=== PATIENT | male | born 1940 | race Caucasian/White ===

== ENCOUNTER → 2020-01-03 | Outpatient (CLI) | payer OTHER ==
[~2020-01-03] MED LIST: ASPI325 PO; ASPI81CH PO; ATEN25 PO; CLOP75 PO; HYDCHL25 PO; LISI20 PO; LIVALO2 MG PO; MULVITMIND PO; NIAC500 PO; NITR.6SL SL; PANT20 PO; TAMS.4ER PO
[2020-01-03 18:52] LABS: BASOPHILS ABSOLUTE AUTO 0.03 K/mm3 (0.00-0.23); BASOPHILS PERCENT AUTO 1 % (0-2); EOSINOPHILS ABSOLUTE AUTO 0.06 K/mm3 (0.00-0.68); EOSINOPHILS PERCENT AUTO 1 % (0-6); Hematocrit 34.6 % (37.0-53.0); Hemoglobin 11.9 g/dL (13.5-17.5); IMMATURE GRAN ABSOLUTE AUTO 0.03 K/mm3 (0.00-0.10); IMMATURE GRAN PERCENT AUTO 1 % (0-1); LYMPHOCYTES ABSOLUTE AUTO 1.82 K/mm3 (0.84-5.20); LYMPHOCYTES PERCENT AUTO 28 % (21-46); MONOCYTES PERCENT AUTO 8 % (4-13); Mean Corpuscular HGB 30.4 pg (26.0-34.0); Mean Corpuscular HGB Conc 34.4 g/dL (31.5-36.5); Mean Corpuscular Volume 88 fL (80-100); Mean Platelet Volume 9.7 fL (9.1-12.4); NEUTROPHILS ABSOLUTE AUTO 4.04 K/mm3 (1.96-9.15); NEUTROPHILS PERCENT AUTO 62 % (41-73); Platelet Count 199 K/mm3 (150-400); RDW Coefficient Variation 12.6 % (11.7-14.2); RDW Standard Deviation 40.1 fL (35.1-46.3); Red Blood Cell Count 3.92 M/mm3 (4.30-5.90); White Blood Cell Count 6.48 K/mm3 (4.00-11.30)
[2020-01-03 19:03] LABS: Albumin, Blood 4.3 g/dL (3.4-5.0); Albumin/Globulin Ratio 1.3 (0.8-1.8); Bilirubin, Total 0.2 mg/dL (0.1-1.0); Calcium, Blood 8.7 mg/dL (8.5-10.1); Creatinine, Blood 1.68 mg/dL (0.60-1.20); Globulin, Blood 3.3 g/dL (2.2-4.0); Potassium, Blood 4.7 mmol/L (3.5-5.5); Total Protein, Blood 7.6 g/dL (6.4-8.2)
== END | disposition home or self-care (01) ==
LOC: LAB SHORT 18:48 → LAB EV 18:48
PROVIDERS: Physician Assistant
DX: R10.31 Right lower quadrant pain (principal)
CPT/HCPCS: 80053; 85025

== ENCOUNTER 2020-06-18 12:14 | Day surgery (SDC) | payer OTHER ==
[~2020-06-18] VITALS: Ht 182.9 cm; Wt 89.2 kg
[~2020-06-18 12:14] MED LIST changes: +Aspirin EC81 MG PO; +B-121000 MC4 PO; +FERSU300 PO; +MAGNESIUM OXID500 MG PO; +MULTIPLE VITAM1 EACH PO; +NITR.4SL SL; +ROSU10TA PO
== END 2020-06-18 14:35 | disposition home or self-care (01) ==
LOC: ORSCSDS 12:14
PROVIDERS: Student in an Organized Health Care Education/Training Program
PROC: 0DBP8ZX Excision of Rectum, Via Natural or Artificial Opening Endoscopic, Diagnostic (ICD-10-PCS; principal; 2020-06-18 13:30)
PROC: 0DB58ZX Excision of Esophagus, Via Natural or Artificial Opening Endoscopic, Diagnostic (ICD-10-PCS; principal; 2020-06-18 13:30)
PROC: 0DB98ZX Excision of Duodenum, Via Natural or Artificial Opening Endoscopic, Diagnostic (ICD-10-PCS; principal; 2020-06-18 13:30)
PROC: 0DB78ZX Excision of Stomach, Pylorus, Via Natural or Artificial Opening Endoscopic, Diagnostic (ICD-10-PCS; principal; 2020-06-18 13:30)
PROC: 0DBK8ZX Excision of Ascending Colon, Via Natural or Artificial Opening Endoscopic, Diagnostic (ICD-10-PCS; principal; 2020-06-18 13:30)
PROC: 0DBH8ZX Excision of Cecum, Via Natural or Artificial Opening Endoscopic, Diagnostic (ICD-10-PCS; principal; 2020-06-18 13:30)
DX: K21.0 Gastro-esophageal reflux disease with esophagitis (principal); R10.9 Unspecified abdominal pain; Z12.11 Encounter for screening for malignant neoplasm of colon; D12.2 Benign neoplasm of ascending colon; D12.0 Benign neoplasm of cecum; K29.70 Gastritis, unspecified, without bleeding; Z87.11 Personal history of peptic ulcer disease; K57.30 Diverticulosis of large intestine without perforation or abscess without bleeding; K64.8 Other hemorrhoids; I10 Essential (primary) hypertension; N18.3 Chronic kidney disease, stage 3 (moderate); I25.10 Atherosclerotic heart disease of native coronary artery without angina pectoris; E78.5 Hyperlipidemia, unspecified; E11.9 Type 2 diabetes mellitus without complications; Z79.899 Other long term (current) drug therapy; Z79.01 Long term (current) use of anticoagulants; Z79.82 Long term (current) use of aspirin
CPT/HCPCS: 82947; 88305; 88312; 88342; 93005; 93010; J2704; J7120

== ENCOUNTER → 2020-07-25 | Outpatient (CLI) | payer OTHER | END | disposition home or self-care (01) | LOC: LAB 10:28 → LAB SHORT 10:28 | DX: D04.39 Carcinoma in situ of skin of other parts of face (principal) | CPT/HCPCS: 88305 ==

== ENCOUNTER → 2021-05-23 | Outpatient (CLI) | payer OTHER ==
[2021-05-23 12:52] LABS: Adenovirus F 40/41 Not Detected (NOT DETECT); Astrovirus Not Detected (NOT DETECT); Campylobacter Sp Not Detected (NOT DETECT); Cryptosporidium Not Detected (NOT DETECT); Cyclospora Cayetanensis Not Detected (NOT DETECT); E. Coli O157 Not Detected (NOT DETECT); Entamoeba Histolytica Not Detected (NOT DETECT); Enteroaggregative E. coli-EAEC Not Detected (NOT DETECT); Enteropathogenic E. coli-EPEC Not Detected (NOT DETECT); Enterotoxigenic E. coli-ETEC Not Detected (NOT DETECT); Giardia Lamblia Not Detected (NOT DETECT); Norovirus GI/GII Not Detected (NOT DETECT); Plesiomonas Shigelloides Not Detected (NOT DETECT); Rotavirus A Not Detected (NOT DETECT); Salmonella Sp Not Detected (NOT DETECT); Sapovirus Not Detected (NOT DETECT); Shiga Toxin-prod E. coli-STEC Not Detected (NOT DETECT); Shigella/Enteroin E. coli-EIEC Not Detected (NOT DETECT); Vibrio Cholerae Not Detected (NOT DETECT); Vibrio Sp Not Detected (NOT DETECT); Yersinia Enterocolitica Not Detected (NOT DETECT)
== END | disposition home or self-care (01) ==
LOC: LAB 05:55 → LAB SHORT 05:55
PROVIDERS: Student in an Organized Health Care Education/Training Program
DX: R19.7 Diarrhea, unspecified (principal)
CPT/HCPCS: 0097U; 87324

== ENCOUNTER → 2021-11-25 | Outpatient (CLI) | payer OTHER ==
[2021-11-25 13:13] LABS: Adenovirus F 40/41 Not Detected (NOT DETECT); Astrovirus Not Detected (NOT DETECT); Campylobacter Sp Not Detected (NOT DETECT); Cryptosporidium Not Detected (NOT DETECT); Cyclospora Cayetanensis Not Detected (NOT DETECT); E. Coli O157 Not Detected (NOT DETECT); Entamoeba Histolytica Not Detected (NOT DETECT); Enteroaggregative E. coli-EAEC Not Detected (NOT DETECT); Enteropathogenic E. coli-EPEC Not Detected (NOT DETECT); Enterotoxigenic E. coli-ETEC Not Detected (NOT DETECT); Giardia Lamblia Not Detected (NOT DETECT); Norovirus GI/GII Not Detected (NOT DETECT); Plesiomonas Shigelloides Not Detected (NOT DETECT); Salmonella Sp Not Detected (NOT DETECT); Shiga Toxin-prod E. coli-STEC Not Detected (NOT DETECT); Shigella/Enteroin E. coli-EIEC Not Detected (NOT DETECT); Vibrio Cholerae Not Detected (NOT DETECT); Vibrio Sp Not Detected (NOT DETECT); Yersinia Enterocolitica Not Detected (NOT DETECT)
[2021-11-25 13:14] LABS: Rotavirus A Not Detected (NOT DETECT); Sapovirus Not Detected (NOT DETECT)
== END | disposition home or self-care (01) ==
LOC: LAB SHORT 06:45 → LAB 06:45
PROVIDERS: Student in an Organized Health Care Education/Training Program
DX: K58.2 Mixed irritable bowel syndrome (principal); R19.7 Diarrhea, unspecified
CPT/HCPCS: 0097U

== ENCOUNTER 2022-01-12 00:16 | Inpatient (IN) | payer OTHER ==
[~2022-01-12] VITALS: Ht 185.4 cm; Wt 91.7 kg
[2022-01-12] MEDS ORDERED: PANT40 PO (00:43)
[2022-01-12] MEDS ORDERED: PRAV20 PO (00:43)
[2022-01-12 00:50] LABS: BASOPHILS ABSOLUTE AUTO 0.03 K/mm3 (0.00-0.23); BASOPHILS PERCENT AUTO 1 % (0-2); EOSINOPHILS ABSOLUTE AUTO 0.07 K/mm3 (0.00-0.68); EOSINOPHILS PERCENT AUTO 1 % (0-6); Hematocrit 34.7 % (37.0-53.0); Hemoglobin 11.5 g/dL (13.5-17.5); IMMATURE GRAN ABSOLUTE AUTO 0.03 K/mm3 (0.00-0.10); IMMATURE GRAN PERCENT AUTO 1 % (0-1); LYMPHOCYTES ABSOLUTE AUTO 1.51 K/mm3 (0.84-5.20); LYMPHOCYTES PERCENT AUTO 28 % (21-46); MONOCYTES ABSOLUTE AUTO 0.45 K/mm3 (0.16-1.47); MONOCYTES PERCENT AUTO 8 % (4-13); Mean Corpuscular HGB 29.6 pg (26.0-34.0); Mean Corpuscular HGB Conc 33.1 g/dL (31.5-36.5); Mean Corpuscular Volume 89 fL (80-100); Mean Platelet Volume 9.8 fL (9.1-12.4); NEUTROPHILS ABSOLUTE AUTO 3.39 K/mm3 (1.96-9.15); NEUTROPHILS PERCENT AUTO 62 % (41-73); Platelet Count 232 K/mm3 (150-400); RDW Coefficient Variation 12.2 % (11.7-14.2); RDW Standard Deviation 39.7 fL (35.1-46.3); Red Blood Cell Count 3.88 M/mm3 (4.30-5.90); White Blood Cell Count 5.48 K/mm3 (4.00-11.30)
[2022-01-12 01:01] LABS: Albumin, Blood 3.6 g/dL (3.4-5.0); Bilirubin, Total 0.2 mg/dL (0.1-1.0); Bun/Creatinine Ratio 20.2 (12.0-20.0); Calcium, Blood 9.4 mg/dL (8.5-10.1); Creatinine, Blood 1.29 mg/dL (0.60-1.20); Globulin, Blood 3.6 g/dL (2.2-4.0); Potassium, Blood 4.7 mmol/L (3.5-5.5); Total Protein, Blood 7.2 g/dL (6.4-8.2)
[2022-01-12 03:37] LABS: Anti-Xa UFH, PHA Monitoring <0.10 IU/mL; Prothrombin Time Results 10.5 Sec (9.7-11.5)
[2022-01-12 04:27] LABS: BASOPHILS ABSOLUTE AUTO 0.03 K/mm3 (0.00-0.23); BASOPHILS PERCENT AUTO 0 % (0-2); EOSINOPHILS ABSOLUTE AUTO 0.06 K/mm3 (0.00-0.68); EOSINOPHILS PERCENT AUTO 1 % (0-6); Hematocrit 35.9 % (37.0-53.0); IMMATURE GRAN ABSOLUTE AUTO 0.04 K/mm3 (0.00-0.10); IMMATURE GRAN PERCENT AUTO 1 % (0-1); LYMPHOCYTES ABSOLUTE AUTO 1.89 K/mm3 (0.84-5.20); LYMPHOCYTES PERCENT AUTO 25 % (21-46); MONOCYTES ABSOLUTE AUTO 0.52 K/mm3 (0.16-1.47); MONOCYTES PERCENT AUTO 7 % (4-13); Mean Corpuscular HGB 29.8 pg (26.0-34.0); Mean Corpuscular HGB Conc 33.4 g/dL (31.5-36.5); Mean Corpuscular Volume 89 fL (80-100); Mean Platelet Volume 9.9 fL (9.1-12.4); NEUTROPHILS PERCENT AUTO 66 % (41-73); Platelet Count 246 K/mm3 (150-400); RDW Standard Deviation 38.9 fL (35.1-46.3); Red Blood Cell Count 4.03 M/mm3 (4.30-5.90); White Blood Cell Count 7.54 K/mm3 (4.00-11.30)
[2022-01-12 04:41] LABS: Albumin, Blood 3.7 g/dL (3.4-5.0); Bilirubin, Total 0.3 mg/dL (0.1-1.0); Bun/Creatinine Ratio 21.2 (12.0-20.0); Calcium, Blood 9.6 mg/dL (8.5-10.1); Creatinine, Blood 1.18 mg/dL (0.60-1.20); Globulin, Blood 3.6 g/dL (2.2-4.0); Potassium, Blood 4.7 mmol/L (3.5-5.5); Total Protein, Blood 7.3 g/dL (6.4-8.2)
--- NOTE | 2022-01-12 05:21 | NUR ---
CARE ASSUMPTION: PATIENT ARRIVED TO UNIT VIA [facility] FROM ED AT 0321. RECEIVED REPORT FROM ALY MUNGUIA. PATIENT HAD SEVERE CHEST PAIN AT HOME AND WAS LAYING ON THE FLOOR WHEN EMS ARRIVED. HE STATED TO EMS THAT HE WAS TOLD TO LAY FLAT ON THE FLOOR WHEN HE HAS CHEST PAIN AND RATED HIS PAIN 8/10 AT THAT TIME. HIS PAIN WAS 2/10 UPON ARRIVAL TO ED AND 0/10 UPON ARRIVAL TO PCU. HE WAS GIVEN ASPIRIN AND 1 SUBLINGUAL NITRO PRIOR TO COMING TO PCU. HE AMBULATED FROM [facility] TO BED AND ADMISSION COMPLETED. SECOND IV WAS STARTED IN ANTICIPATION OF HEPARIN ORDER AND NS WAS RUNNING AT 75 MLS/HR. MEDICATED PER EMAR AND PATIENT CURRENTLY NPO. HEART CENTER CONSULT ORDERED.
--- NOTE | 2022-01-12 05:26 | NUR ---
SHIFT SUMMARY: PATIENT RESTING IN BED, DENIES CHEST PAIN OR SOB. USES CALL LIGHT APPROPRIATELY AND STANDS AT BEDSIDE TO USE URINAL. BPS SLIGHTLY ELEVATED - PATIENT HAS HX OF HTN. PATIENT UNDERSTANDS HE IS NPO UNTIL AFTER VEGETABLE THINNER PROCEDURE AND STATES HE "WILL BE FINE." PLEASANT GENTLEMAN AND COOPERATIVE WITH CARE. BED IN LOW POSITION WITH CALL LIGHT IN REACH. WILL CONTINUE TO MONITOR AND REPORT TO ONCOMING RN.
--- NOTE | 2022-01-12 07:51 | NUR ---
AM NOTE: PATIENT ALERT AND ORIENTED X4. PERRLA. NUMBNESS/TINGLING TO LOWER LEGS, PATIENT STATES THAT IS HIM "GETTING OLD". ABLE TO STAND AND USE URINAL UNASSISTED. ON ROOM AIR, LUNGS SOUNDING CLEAR. DENIES COUGH. TELE SHOWING SINUS LAUREN - SINUS RHYTHM WITH ST DEPRESSION. BP STABLE. DENIES CHEST PAIN/PRESSURE. HEPARIN DRIP INFUSING. DENIES ABDOMINAL PAIN/NAUSEA. NPO AT THIS TIME. PLAN FOR CARDIOLOGY CONSULT THIS AM. SKIN C/D/I. USING CALL LIGHT WHEN NEEDED. ABLE TO TURN SELF IND IN BED. NORMAL SALINE INFUSING AT 75 ML/HR X1 BAG. DENIES NEEDS AT THIS TIME. WILL CONTINUE TO MONITOR.
[2022-01-12] MEDS ORDERED: LISI20 PO (08:47)
--- NOTE | 2022-01-12 09:05 | NUR ---
DR BACA IN TO SEE PATIENT. PLAN FOR CARDIAC STRESS TEST. DR. BROWN IN TO SEE PATIENT WELL. DISCUSSED MED REC. PARAMETERS PLACED ON ATENOLOL. PATIENT DRINKING WATER AT THIS TIME. AM MEDS GIVEN. WILL CONTINUE TO MONITOR.
--- NOTE | 2022-01-12 09:12 | NUR ---
SPOKE WITH NUCULEAR MEDICINE REGARDING STRESS TEST. UNABLE TO DO 1 DAY PROTOCOL. PLAN FOR TODAY - INJECT MEDICATION AT 1230 AND THEN TAKE PICTURES AROUND 1330. NPO AT THIS TIME, PATIENT ABLE TO EAT LUNCH AFTER 1230 AND DINNER TONIGHT. PLAN FOR NPO AT MIDNIGHT, WATER OKAY, NO CAFFEINE. 2ND PART OF STRESS TEST 01/13 AM. PATIENT AND UPDATED.
--- NOTE | 2022-01-12 17:38 | NUR ---
SHIFT SUMMARY: NO ACUTE CHANGES. SEE AM NOTE FOR UPDATES. PATIENT REMAINS ALERT AND ORIENTED X4. NO CHANGES TO NEURO. REMAINS ON ROOM AIR. TELE SHOWS SINUS LAUREN - SINUS RHYTHM WITH HR 50-70'S. CONTINUES TO DENY CHEST PAIN. 2 DAY PROTOCOL STRESS TEST IN PROGRESS. DAY ONE COMPLETE. NPO AT MIDNIGHT, WATER OKAY, NO CAFFEINE. HEPARIN INFUSING. NS COMPLETE. TOLERATING PO DIET. CALL LIGHT IN REACH. USING URINAL AT BEDSIDE. DENIES NEEDS AT THIS TIME. WILL CONTINUE TO MONITOR AND REPORT OFF.
--- NOTE | 2022-01-12 21:38 | NUR ---
PT IS A&OX4. DENIES ANY SOB OR CHEST PAIN. HR REMAINS SINUS LAUREN DOWN INTO 49, WHICH PT HAS BEEN DOING ON PREVIOUS SHIFT. PLETH IS HIGH 90'S ON RA. MEDICATED FOR PAIN IN RIGHT SHOULDER, REPORTS HE HAS HAD PAIN HERE FOR SEVERAL MONTHS AND HAVE BEEN TREATING WITH LIDOCAINE TOPICAL CREAM. DENIES IT TRAVELING OR FEELING CHEST PAIN HE DID PREVIOUSLY. WILL MONITOR. DENIES NEEDS AT THIS TIME. SAFETY MEASURES IN PLACE.
--- NOTE | 2022-01-13 02:34 | NUR ---
PT RESTING IN BED WITH EYE CLOSED. BREATHING EVEN AND UNLABORED. DOES NOT APPEAR IN ANY DISTRESS. CALL LIGHT IN REACH.
[2022-01-13 04:40] LABS: BASOPHILS ABSOLUTE AUTO 0.03 K/mm3 (0.00-0.23); BASOPHILS PERCENT AUTO 1 % (0-2); EOSINOPHILS ABSOLUTE AUTO 0.11 K/mm3 (0.00-0.68); EOSINOPHILS PERCENT AUTO 2 % (0-6); Hematocrit 33.9 % (37.0-53.0); IMMATURE GRAN ABSOLUTE AUTO 0.03 K/mm3 (0.00-0.10); IMMATURE GRAN PERCENT AUTO 1 % (0-1); LYMPHOCYTES ABSOLUTE AUTO 1.82 K/mm3 (0.84-5.20); LYMPHOCYTES PERCENT AUTO 33 % (21-46); MONOCYTES ABSOLUTE AUTO 0.49 K/mm3 (0.16-1.47); MONOCYTES PERCENT AUTO 9 % (4-13); Mean Corpuscular HGB 29.3 pg (26.0-34.0); Mean Corpuscular HGB Conc 32.4 g/dL (31.5-36.5); Mean Corpuscular Volume 90 fL (80-100); Mean Platelet Volume 9.9 fL (9.1-12.4); NEUTROPHILS ABSOLUTE AUTO 3.01 K/mm3 (1.96-9.15); NEUTROPHILS PERCENT AUTO 55 % (41-73); Platelet Count 205 K/mm3 (150-400); RDW Coefficient Variation 12.3 % (11.7-14.2); RDW Standard Deviation 40.3 fL (35.1-46.3); Red Blood Cell Count 3.75 M/mm3 (4.30-5.90); White Blood Cell Count 5.49 K/mm3 (4.00-11.30)
--- NOTE | 2022-01-13 04:56 | NUR ---
PT MADE NPO AT MIDNITE. ALLOWED TO MOISTEN MOUTH WITH SIP OF WATER. HOLDING A.M. PROTONIX DUE TO NPO ORDER. CONTINUES TO DENY ANY CHEST PAIN. HR REMAINS SB-SR. HEPRIN GTT INFUSING ORDERED. CALL LIGHT IN REACH.
[2022-01-13 05:01] LABS: Bun/Creatinine Ratio 17.7 (12.0-20.0); Calcium, Blood 8.8 mg/dL (8.5-10.1); Creatinine, Blood 1.24 mg/dL (0.60-1.20); Potassium, Blood 4.4 mmol/L (3.5-5.5)
--- NOTE | 2022-01-13 10:00 | NUR ---
ST ELEVATION POST STRESS TEST, ST ELEVATION & PVC's STARTED. DENIES CP OR PRESSURE. BOTH BRAKE LINER & EFM TOLD.
--- NOTE | 2022-01-13 17:15 | NUR ---
PT TO HEART CENTER VIA HOSPTIAL BED.
--- NOTE | 2022-01-13 18:01 | NUR ---
SHIFT SUMMARY: PT HAS BEEN PLEASANT AND UPBEAT TODAY. MOVES AROUND EASILY IN ROOM. INDEPENDENT TO THE BATHROOM. ATE BREAKFAST POST STRESS TEST BUT NPO SINCE FOR PROCEDURE. HAS DENIED CHEST PAIN T/O SHIFT DESPITE HAVING ELEVATED ST POST STRESS TEST. WENT TO HEART CENTER AND AWAITING RETURN.
--- NOTE | 2022-01-13 19:10 | NUR ---
Hematoma found on arrival to floor, pressure applied and we will apply second TR band.
--- NOTE | 2022-01-13 23:41 | NUR ---
TR band has had 8cc out so far. @1135 attempted to take 3cc out, but it some bleeding noticed in band, placed 3cc back in and will wait 30 minutes before attempting to take any more out.
--- NOTE | 2022-01-14 00:37 | NUR ---
2CC REMOVED AND DID NOT BLEED THIS TIME. 3 MORE CC TO REMOVE FROM TR BAND
[2022-01-14 04:17] LABS: BASOPHILS ABSOLUTE AUTO 0.03 K/mm3 (0.00-0.23); BASOPHILS PERCENT AUTO 1 % (0-2); EOSINOPHILS ABSOLUTE AUTO 0.11 K/mm3 (0.00-0.68); EOSINOPHILS PERCENT AUTO 2 % (0-6); Hemoglobin 12.2 g/dL (13.5-17.5); IMMATURE GRAN ABSOLUTE AUTO 0.04 K/mm3 (0.00-0.10); IMMATURE GRAN PERCENT AUTO 1 % (0-1); LYMPHOCYTES ABSOLUTE AUTO 1.87 K/mm3 (0.84-5.20); LYMPHOCYTES PERCENT AUTO 29 % (21-46); MONOCYTES ABSOLUTE AUTO 0.62 K/mm3 (0.16-1.47); MONOCYTES PERCENT AUTO 10 % (4-13); Mean Corpuscular HGB 29.2 pg (26.0-34.0); Mean Corpuscular Volume 89 fL (80-100); Mean Platelet Volume 9.4 fL (9.1-12.4); NEUTROPHILS ABSOLUTE AUTO 3.73 K/mm3 (1.96-9.15); NEUTROPHILS PERCENT AUTO 58 % (41-73); Platelet Count 219 K/mm3 (150-400); RDW Standard Deviation 38.9 fL (35.1-46.3); Red Blood Cell Count 4.18 M/mm3 (4.30-5.90)
--- NOTE | 2022-01-14 04:22 | NUR ---
Gunner'S Mate note: Pt is A&O, pleasant with cares. VSS on RA. Pt arrived from cardiac cath lab manager around 1900. Hematoma was present on arrival. industrial laborer nurses helped us reposition TR band. Hematoma was marked. TR band was slowly deflated and at one point did bleed and air had to be re-inserted. TR band was completly removed by 0300. Arm splint in place to help prevent bending of wrist and precautions reinforced.
[2022-01-14 04:43] LABS: Bun/Creatinine Ratio 19.8 (12.0-20.0); Calcium, Blood 8.9 mg/dL (8.5-10.1); Creatinine, Blood 1.21 mg/dL (0.60-1.20); Potassium, Blood 4.3 mmol/L (3.5-5.5)
[2022-01-14] MEDS ORDERED: ADALAT CC30 M1 PO (11:41)
--- NOTE | 2022-01-14 12:42 | NUR ---
DISCHARGE NOTE DISCHARGE INSTRUCTIONS GIVEN TO PT AND SPOUSE. STENT CARD PLACED IN DISCHARGE FOLDER. PT STATED THAT THEY HAD NO FURTHER QUESTIONS OR CONCERNS AND VERBALIZED UNDERSTANDING OF WHO TO CALL WITH ANY FURTHER QUESTIONS OR CONCERNS. ALL BELONGINGS WERE IN PT'S POSSESSION AT TIME OF DISCHARGE. PT WAS TRANSPORTED BY WHEELCHAIR TO PERSONAL VEHICLE.
== END 2022-01-14 12:01 | disposition home or self-care (01) | DRG 247 ==
LOC: ER 00:16 → PCU 00:17
PROVIDERS: Family Medicine; Student in an Organized Health Care Education/Training Program; ADMIT Internal Medicine
PROC: 027035Z Dilation of Coronary Artery, One Artery with Two Drug-eluting Intraluminal Devices, Percutaneous Approach (ICD-10-PCS; principal; 2022-01-13)
PROC: 4A023N7 Measurement of Cardiac Sampling and Pressure, Left Heart, Percutaneous Approach (ICD-10-PCS; 2022-01-13)
PROC: B2111ZZ Fluoroscopy of Multiple Coronary Arteries using Low Osmolar Contrast (ICD-10-PCS; 2022-01-13)
DX: I21.4 Non-ST elevation (NSTEMI) myocardial infarction (principal); I25.700 Atherosclerosis of coronary artery bypass graft(s), unspecified, with unstable angina pectoris; I12.9 Hypertensive chronic kidney disease with stage 1 through stage 4 chronic kidney disease, or unspecified chronic kidney disease; N18.2 Chronic kidney disease, stage 2 (mild); K21.9 Gastro-esophageal reflux disease without esophagitis; E78.5 Hyperlipidemia, unspecified; N40.0 Benign prostatic hyperplasia without lower urinary tract symptoms; Z95.5 Presence of coronary angioplasty implant and graft; Z79.899 Other long term (current) drug therapy; Z79.02 Long term (current) use of antithrombotics/antiplatelets; Z79.82 Long term (current) use of aspirin
CPT/HCPCS: 36415; 71045; 76937; 78452; 80048; 80053; 83880; 84484; 85025; 85347; 85520; 85610; 93005; 93010; 93017; 93459; 96374; 96376; 99152; 99153; 99285-25; A9270; A9500; C1725; C1769; C1874; C1887; C1894; C9600; G0378; J0280; J1644; J2250; J2785; J3010; J7030; J7040; Q9967

== ENCOUNTER 2022-06-27 23:52 | Observation (INO) | payer OTHER ==
[~2022-06-27] VITALS: Ht 185.4 cm; Wt 84.5 kg
[~2022-06-27 23:52] MED LIST changes: +ADALAT CC30 M1 PO; +PANT40 PO; +PRAV20 PO
[2022-06-28 00:11] LABS: BASOPHILS ABSOLUTE AUTO 0.01 K/mm3 (0.00-0.23); BASOPHILS PERCENT AUTO 0 % (0-2); EOSINOPHILS PERCENT AUTO 0 % (0-6); Hematocrit 31.8 % (37.0-53.0); Hemoglobin 10.7 g/dL (13.5-17.5); IMMATURE GRAN ABSOLUTE AUTO 0.03 K/mm3 (0.00-0.10); IMMATURE GRAN PERCENT AUTO 1 % (0-1); LYMPHOCYTES ABSOLUTE AUTO 1.37 K/mm3 (0.84-5.20); LYMPHOCYTES PERCENT AUTO 21 % (21-46); MONOCYTES ABSOLUTE AUTO 0.32 K/mm3 (0.16-1.47); MONOCYTES PERCENT AUTO 5 % (4-13); Mean Corpuscular HGB 28.8 pg (26.0-34.0); Mean Corpuscular HGB Conc 33.6 g/dL (31.5-36.5); Mean Corpuscular Volume 86 fL (80-100); Mean Platelet Volume 9.2 fL (9.1-12.4); NEUTROPHILS ABSOLUTE AUTO 4.92 K/mm3 (1.96-9.15); NEUTROPHILS PERCENT AUTO 74 % (41-73); Platelet Count 281 K/mm3 (150-400); RDW Coefficient Variation 13.3 % (11.7-14.2); RDW Standard Deviation 41.2 fL (35.1-46.3); Red Blood Cell Count 3.71 M/mm3 (4.30-5.90); White Blood Cell Count 6.65 K/mm3 (4.00-11.30)
[2022-06-28 00:26] LABS: Albumin, Blood 3.8 g/dL (3.4-5.0); Albumin/Globulin Ratio 1.1 (0.8-1.8); Bilirubin, Total 0.2 mg/dL (0.1-1.0); Bun/Creatinine Ratio 33.3 (12.0-20.0); Calcium, Blood 8.9 mg/dL (8.5-10.1); Creatinine, Blood 1.17 mg/dL (0.60-1.20); Globulin, Blood 3.6 g/dL (2.2-4.0); Potassium, Blood 4.7 mmol/L (3.5-5.5); Total Protein, Blood 7.4 g/dL (6.4-8.2)
[2022-06-28 06:18] LABS: International Normalized Ratio 0.99; Prothrombin Time Results 10.4 Sec (9.7-11.5)
[2022-06-28] MEDS ORDERED: METO25ER PO (13:55)
--- NOTE | 2022-06-28 17:45 | NUR ---
SHIFT SUMMARY; ADMIT FROM ED DURING SHIFT FOR NSTEMI. A/A/OX4, INDEPENDANT, HEPARIN INFUSING AT 12UNITS/KG. CARDIAC CONSULT COMPLETE. NPO AFTER MIDNIGHT FOR ANGIO TOMORROW. DENIES CP OR SOB, VSS, USES URINAL AT BEDSIDE, WILL CONTINUE TO MONITOR AND TREAT UNTIL CHANGE OF SHIFT.
[2022-06-29 02:18] LABS: BASOPHILS ABSOLUTE AUTO 0.01 K/mm3 (0.00-0.23); BASOPHILS PERCENT AUTO 0 % (0-2); EOSINOPHILS PERCENT AUTO 0 % (0-6); Hematocrit 31.4 % (37.0-53.0); Hemoglobin 10.5 g/dL (13.5-17.5); IMMATURE GRAN ABSOLUTE AUTO 0.03 K/mm3 (0.00-0.10); IMMATURE GRAN PERCENT AUTO 1 % (0-1); LYMPHOCYTES ABSOLUTE AUTO 1.38 K/mm3 (0.84-5.20); LYMPHOCYTES PERCENT AUTO 22 % (21-46); MONOCYTES ABSOLUTE AUTO 0.36 K/mm3 (0.16-1.47); MONOCYTES PERCENT AUTO 6 % (4-13); Mean Corpuscular HGB 28.9 pg (26.0-34.0); Mean Corpuscular HGB Conc 33.4 g/dL (31.5-36.5); Mean Corpuscular Volume 87 fL (80-100); Mean Platelet Volume 9.4 fL (9.1-12.4); NEUTROPHILS ABSOLUTE AUTO 4.64 K/mm3 (1.96-9.15); NEUTROPHILS PERCENT AUTO 72 % (41-73); Platelet Count 272 K/mm3 (150-400); RDW Coefficient Variation 13.3 % (11.7-14.2); Red Blood Cell Count 3.63 M/mm3 (4.30-5.90); White Blood Cell Count 6.42 K/mm3 (4.00-11.30)
[2022-06-29 02:44] LABS: Albumin, Blood 3.4 g/dL (3.4-5.0); Bilirubin, Total 0.2 mg/dL (0.1-1.0); Bun/Creatinine Ratio 31.9 (12.0-20.0); Calcium, Blood 8.5 mg/dL (8.5-10.1); Creatinine, Blood 1.13 mg/dL (0.60-1.20); Globulin, Blood 3.3 g/dL (2.2-4.0); Potassium, Blood 4.9 mmol/L (3.5-5.5); Total Protein, Blood 6.7 g/dL (6.4-8.2)
--- NOTE | 2022-06-29 06:28 | NUR ---
SHIFT SUMMARY PT AOX4, BREATHING EVEN AND UNLABORED, SATS >95% ON RA. DENIED CP T/O SHIFT. HEPARIN GTT CONTINUES AT 12U/KG/HR, 20.9 MLS/HR. PT NPO AFTER 0000. SB-ST UPPER 50'S-80'S. PT INDEPENDENTLY USES URINAL FROM BEDSIDE T/O SHIFT.
[2022-06-29 11:57] LABS: SARS-Cov-2 (COVID-19) PCR, MMC NEGATIVE (NEGATIVE)
--- NOTE | 2022-06-29 18:51 | NUR ---
Shift Summary Pt alert, oriented x4; calm and cooperative with care. Pt resting in bed, up with sba. Pt on bedrest post angio, right groin site, small amount of blood noted on arrival, increase bleeding after patient lifted head, held pressure for approx 10 minutes, no additional bleeding noted, recovering per protocol. Pt denies pain, chest pain/pressure, sob, nausea, dizziness or numb/tingling. Vss. No other acute changes noted. Will continue to monitor.
--- NOTE | 2022-06-30 00:12 | NUR ---
UPDATE: PATIENT FOUND WALKING BESIDE BED AT 2109. EDUCATED PATIENT ON RECOVERY PROCESS. ANGIO SITE C/D/I AT 2109 AND 2199 - NO OOZING. CALLED RESIDENT FOR SLEEPING AID AT PATIENT REQUEST. MEDICATED PER EMAR. BED LOW WITH CALL LIGHT IN REACH.
[2022-06-30 04:19] LABS: BASOPHILS ABSOLUTE AUTO 0.02 K/mm3 (0.00-0.23); BASOPHILS PERCENT AUTO 0 % (0-2); EOSINOPHILS PERCENT AUTO 0 % (0-6); Hematocrit 33.5 % (37.0-53.0); Hemoglobin 10.9 g/dL (13.5-17.5); IMMATURE GRAN ABSOLUTE AUTO 0.06 K/mm3 (0.00-0.10); IMMATURE GRAN PERCENT AUTO 1 % (0-1); LYMPHOCYTES ABSOLUTE AUTO 1.25 K/mm3 (0.84-5.20); LYMPHOCYTES PERCENT AUTO 18 % (21-46); MONOCYTES ABSOLUTE AUTO 0.62 K/mm3 (0.16-1.47); MONOCYTES PERCENT AUTO 9 % (4-13); Mean Corpuscular HGB 28.2 pg (26.0-34.0); Mean Corpuscular HGB Conc 32.5 g/dL (31.5-36.5); Mean Corpuscular Volume 87 fL (80-100); Mean Platelet Volume 9.3 fL (9.1-12.4); NEUTROPHILS ABSOLUTE AUTO 5.14 K/mm3 (1.96-9.15); NEUTROPHILS PERCENT AUTO 73 % (41-73); Platelet Count 303 K/mm3 (150-400); RDW Coefficient Variation 13.5 % (11.7-14.2); RDW Standard Deviation 42.5 fL (35.1-46.3); Red Blood Cell Count 3.86 M/mm3 (4.30-5.90); White Blood Cell Count 7.09 K/mm3 (4.00-11.30)
[2022-06-30 04:50] LABS: Albumin, Blood 3.5 g/dL (3.4-5.0); Albumin/Globulin Ratio 1.1 (0.8-1.8); Bilirubin, Total 0.4 mg/dL (0.1-1.0); Calcium, Blood 8.8 mg/dL (8.5-10.1); Creatinine, Blood 1.2 mg/dL (0.60-1.20); Globulin, Blood 3.2 g/dL (2.2-4.0); Potassium, Blood 4.5 mmol/L (3.5-5.5); Total Protein, Blood 6.7 g/dL (6.4-8.2)
--- NOTE | 2022-06-30 05:23 | NUR ---
SHIFT SUMMARY: PATIENT VS WNL, DENIES SOB OR CHEST PAIN, ANGIO SITE C/D/I AND RECOVERED. NO ADVERSE EVENTS THIS SHIFT. PLEASANT AND COOPERATIVE WITH CARE. USES CALL LIGHT APPROPRIATELY. BED LOW WITH CALL LIGHT IN REACH. WILL CONTINUE TO MONITOR UNTIL REPORT TO DAY RN.
[2022-06-30] MEDS ORDERED: LIPITOR80 MG PO (11:40)
[2022-06-30] MEDS ORDERED: Isosorbide Mono30 MG PO (11:41)
[2022-06-30] MEDS ORDERED: PANT40 PO (11:41)
== END 2022-06-30 12:15 | disposition home or self-care (01) ==
LOC: ER 23:52 → PCU 06-28 03:42 → ERHOLD 06-28 03:42 → PCU 06-28 13:41
PROVIDERS: Emergency Medicine; Family Medicine; Internal Medicine Cardiovascular Disease; Student in an Organized Health Care Education/Training Program; ADMIT Internal Medicine
DX: I21.4 Non-ST elevation (NSTEMI) myocardial infarction (principal); I25.10 Atherosclerotic heart disease of native coronary artery without angina pectoris; T82.855A Stenosis of coronary artery stent, initial encounter; I25.2 Old myocardial infarction; I10 Essential (primary) hypertension; E78.00 Pure hypercholesterolemia, unspecified; E11.9 Type 2 diabetes mellitus without complications; I11.9 Hypertensive heart disease without heart failure; I08.3 Combined rheumatic disorders of mitral, aortic and tricuspid valves; K21.9 Gastro-esophageal reflux disease without esophagitis; N40.0 Benign prostatic hyperplasia without lower urinary tract symptoms; Y71.2 Prosthetic and other implants, materials and accessory cardiovascular devices associated with adverse incidents; Z95.1 Presence of aortocoronary bypass graft; Z79.02 Long term (current) use of antithrombotics/antiplatelets; Z95.5 Presence of coronary angioplasty implant and graft; Z79.82 Long term (current) use of aspirin; Z87.19 Personal history of other diseases of the digestive system; Z20.822 Contact with and (suspected) exposure to COVID-19
CPT/HCPCS: 36415; 71045; 76937; 80053; 84484; 85025; 85347; 85520; 85610; 85730; 92920; 92978; 93454; 94762; 96374; 96376; 99152; 99153; 99285-25; A9270; C1725; C1753; C1760; C1769; C1887; C1894; C9113; G0378; J1644; J2250; J3010; J7030; J7050; Q9967; U0004

== ENCOUNTER 2023-06-28 16:58 | Inpatient (IN) | payer OTHER ==
[~2023-06-28] VITALS: Ht 188 cm; Wt 89.2 kg
[2023-06-28 21:22] VITALS: BP 144/80
[2023-06-28 22:33] VITALS: BP 130/61
[2023-06-29 00:35] VITALS: BP 118/64
[2023-06-29 04:00] VITALS: BP 127/73
[2023-06-29 04:05] LABS: Hematocrit 30.4 % (37.0-53.0); Mean Corpuscular HGB 29.2 pg (26.0-34.0); Mean Corpuscular HGB Conc 32.9 g/dL (31.5-36.5); Mean Corpuscular Volume 89 fL (80-100); Mean Platelet Volume 9.3 fL (9.1-12.4); Platelet Count 234 K/mm3 (150-400); RDW Coefficient Variation 13.4 % (11.7-14.2); RDW Standard Deviation 43.5 fL (35.1-46.3); Red Blood Cell Count 3.43 M/mm3 (4.30-5.90); White Blood Cell Count 4.79 K/mm3 (4.00-11.30)
[2023-06-29 05:40] LABS: Bun/Creatinine Ratio 14.3 (12.0-20.0); Calcium, Blood 8.6 mg/dL (8.5-10.1); Creatinine, Blood 1.33 mg/dL (0.60-1.20); Potassium, Blood 4.5 mmol/L (3.5-5.5)
--- NOTE | 2023-06-29 05:47 | NUR ---
ARRIVAL TO PCU/SHIFT SUMMARY PT ARRIVED TO PCU 10 VIA ED BED. LABETALOL HELD D/T SBP IN THE 140'S. A/O X 4. MOVES ALL EXTREMITIES. VSS. DENIES CHEST PAIN OR PRESSURE. SR c BBB. BP STABLE. ON RA. NO C/O GI PAIN OR DISCOMFORT. VOIDS IN URINAL AT BEDSIDE. PT DOES REPORT SLIGHT BURNING WHEN VOIDING. ABLE TO SLEEP MOST OF THE NIGHT. WILL REPORT OFF TO ONCOMING RN.
[2023-06-29 07:37] VITALS: BP 140/66
[2023-06-29 11:55] VITALS: BP 119/63
--- NOTE | 2023-06-29 13:41 | NUR ---
DR MENDENHALL WAS CALLED THIS AM ABOUT ST CHANGES, ELEVATED TROPONIN, AND ELEVATED BNP. NEW ORDERS WERE OBTAINED AT THAT POINT FOR ECHO, CARDIO CONSULT AND TO TREND TROPONINS Q4H. CARDIOLOGY CONSULT WAS CALLED IN, DR MIRELES WAS IN TO SEE THE PATIENT, CONSENT WAS SIGNED FOR ANGIO AND BLOOD CONSENT AND THEY WERE PLACED IN THE FRONT OF THE CHART. THE PATIENT DENIES CP OR SHORTNESS OF BREATH. SKIN PWD AND INTACT. PULSES EQUAL T/O. VSS. NADN. LUNG SOUNDS CLEAR T/O. PT UPDATED ON LABS, AND THAT HE WILL BE NPO AT MIDNIGHT FOR PRECEDURE
[2023-06-29 16:20] VITALS: BP 104/60
--- NOTE | 2023-06-29 17:43 | NUR ---
THERE ARE NO ACUTE CHANGES SINCE THE LAST NOTE ENTRY. HE IS RESTING WELL IN BED. REMAINS SOB AND CP FREE. HE IS REMINDED THAT HE WILL BE NPO AT MIDNIGHT
[2023-06-29 21:27] VITALS: BP 106/57
[2023-06-30] VITALS (32 sets, daily range): BP systolic 115–174; BP diastolic 50–114
--- NOTE | 2023-06-30 04:21 | NUR ---
TUMBLER OPERATOR SUMMARY PT A+OX4, NO NEURO DEFICITS. VSS THROUGHOUT SHIFT. VOIDING INDEPENDENTLY. NPO SINCE MIDNIGHT FOR ANGIO TOMORROW. ON ROOM AIR THROUGHOUT SHIFT WITHOUT ISSUE. NO EPISODES OF CHEST PAIN OR SOB. NO ACUTE CHANGES.
[2023-06-30 05:34] LABS: BASOPHILS ABSOLUTE AUTO 0.04 K/mm3 (0.00-0.23); BASOPHILS PERCENT AUTO 1 % (0-2); EOSINOPHILS ABSOLUTE AUTO 0.11 K/mm3 (0.00-0.68); EOSINOPHILS PERCENT AUTO 2 % (0-6); Hematocrit 31.6 % (37.0-53.0); Hemoglobin 10.3 g/dL (13.5-17.5); IMMATURE GRAN ABSOLUTE AUTO 0.01 K/mm3 (0.00-0.10); IMMATURE GRAN PERCENT AUTO 0 % (0-1); LYMPHOCYTES ABSOLUTE AUTO 1.54 K/mm3 (0.84-5.20); LYMPHOCYTES PERCENT AUTO 28 % (21-46); MONOCYTES ABSOLUTE AUTO 0.48 K/mm3 (0.16-1.47); MONOCYTES PERCENT AUTO 9 % (4-13); Mean Corpuscular HGB 29.3 pg (26.0-34.0); Mean Corpuscular HGB Conc 32.6 g/dL (31.5-36.5); Mean Corpuscular Volume 90 fL (80-100); Mean Platelet Volume 9.8 fL (9.1-12.4); NEUTROPHILS ABSOLUTE AUTO 3.35 K/mm3 (1.96-9.15); NEUTROPHILS PERCENT AUTO 61 % (41-73); Platelet Count 263 K/mm3 (150-400); RDW Coefficient Variation 13.4 % (11.7-14.2); RDW Standard Deviation 43.1 fL (35.1-46.3); Red Blood Cell Count 3.52 M/mm3 (4.30-5.90); White Blood Cell Count 5.53 K/mm3 (4.00-11.30)
[2023-06-30 05:47] LABS: Bun/Creatinine Ratio 36.3 (12.0-20.0); Calcium, Blood 8.6 mg/dL (8.5-10.1); Creatinine, Blood 0.52 mg/dL (0.60-1.20); Potassium, Blood 4.5 mmol/L (3.5-5.5)
--- NOTE | 2023-06-30 09:12 | NUR ---
INITIAL ASSESSMENT: Patient is lying in bed awake visiting with his . He is alert and oriented x4. He denies chest pain or pressure at this time. He states at home he was mowing his lawn and started having chest pressure, thus he came to the hospital. HRR, SR in the 60s, he has some ST depression and a murmur noted. LS CTA, biox high 90s on RA. BT+, pt is currently NPO for angiogram today. PPP, no edema present. AM meds given at this time. In talking with the patient he has had a difficulty tolerating statin drugs in the past. He and his tell me that they have been slowly advancing his lipitor from 40 mg every other day to a goal dose of 80 mg daily. The patient states he has alot of leg pain with the statins thus making them difficult to tolerate. He requested a reduced dose of his lipitor dose this am, 80 mg is ordered and 40 mg was given per patient request. Patient denies other needs at this time. Call light in reach.
--- NOTE | 2023-06-30 16:20 | NUR ---
Transfer Patient left for the can labeler and is going to be transferred to ICU 01, report given to [facility] ORDER DESK CLERK.
--- NOTE | 2023-06-30 17:30 | NUR ---
Received pt from laborer tin can at 1700: Pt had PCI to RCA with ballooning and shockwave therapy. Pt has 6Fr sheath in place to right femoral artery. Noted quarter size area of raised firmness just above sheath insertion site. Manual pressure held for 10 minutes. Noted reduction of firm spot - now soft. Will continue to monitor closely. Pressure bag and transducer connected to sheath for purposes of patency. Plan to check PTT at 1900 and q2h thereafter if needed, remove sheath once PTT < 50. Pt is alert, oriented x4, denies any pain. Reporting urinary urgency but unable to void per urinal, will bladder scan pt. VSS. Monitor shows sinus rhythm with HR 80s and ST depressions which, per report, were present prior to laborer tin can and have gone unchanged. Pt provided with instructions to remain flat in bed, not to lift head from mattress, and not to move right lower extremity while sheath remains in place. Pt verbalizes understanding. Pt's present at bedside.
--- NOTE | 2023-06-30 21:02 | NUR ---
ASSUMPTION OF CARE/ASSESSMENT: ASSUMED CARE OF PT AT 1900. PT IN BED, A&O X 4 AND FOLLOWING DIRECTIONS. PT STATUS POST OP FROM APPLICATION SUPPORT ADMINISTRATOR FOR THERAPY DONE ON RCA WITH A R. FEMORAL ACCESS SITE; FEMORAL SHEATH REMAINS IN PLACE AT THIS TIME DUE TO APTT 139<. SITE DRESSING REMAINS INTACT WITH BLOOD NOTED UNDERNEATH DRESSING BUT IS NOT GETTING ANY BIGGER. SITE IS SOFT, NON-TENDER, AND IT IS NOTED THAT THERE IS A HEMATOMA AT SITE. COLOR TO R. LEG REMAINS PINK AND WARM, PULSES STRONG AND CAP REFIL < 3 SECONDS. PT EDUCATED ON IMPORTANCE OF REMAINING FLAT AND NOT BENDING OR MOVING R. LEG; PT VERBALIZES UNDERSTANDING. PT CURRENTLY ON RA WITH SPO2 99< AND PT DENIES SOB. SR ON MONITOR WITH HR 70-80, SBP 120'S AND PT DENIES CHEST PAIN/PRESSURE AT THIS TIME. HYPERACTIVE BOWEL SOUNDS IN ALL QUADRANTS; PT TOLERATES PO INTAKE. PT USING URINAL IN BED INDEPENDENTLY. PPP X 4, SKIN OVERALL INTACT AND WARM. BED LOWERED, CALL LIGHT IN REACH.
[2023-07-01] VITALS (33 sets, daily range): BP systolic 101–174; BP diastolic 50–113
--- NOTE | 2023-07-01 | NUR ---
PT UPDATE: SHEATH PULLED AT 2330; 30 MINUTES MANUAL PRESSURE HELD AT ACCESS SITE. NEW DRESSSING IN PLACE, AND NO BLEEDING/HEMATOMA NOTED. PT EDUCATED REGARDING HAVING TO LAY FLAT IN BED FOR THE NECT 4 HOURS AND TO NOT MOVE/BEND RIGHT LEG DURING THAT PERIOD; PT VERBALIZED UNDERSTANDING. WILL CONTINUE TO MONITOR CLOSELY.
[2023-07-01 03:39] LABS: BASOPHILS ABSOLUTE AUTO 0.04 K/mm3 (0.00-0.23); BASOPHILS PERCENT AUTO 1 % (0-2); EOSINOPHILS ABSOLUTE AUTO 0.13 K/mm3 (0.00-0.68); EOSINOPHILS PERCENT AUTO 2 % (0-6); Hematocrit 32.2 % (37.0-53.0); Hemoglobin 10.5 g/dL (13.5-17.5); IMMATURE GRAN ABSOLUTE AUTO 0.02 K/mm3 (0.00-0.10); IMMATURE GRAN PERCENT AUTO 0 % (0-1); LYMPHOCYTES PERCENT AUTO 15 % (21-46); MONOCYTES ABSOLUTE AUTO 0.63 K/mm3 (0.16-1.47); MONOCYTES PERCENT AUTO 10 % (4-13); Mean Corpuscular HGB 29.1 pg (26.0-34.0); Mean Corpuscular HGB Conc 32.6 g/dL (31.5-36.5); Mean Corpuscular Volume 89 fL (80-100); Mean Platelet Volume 9.2 fL (9.1-12.4); NEUTROPHILS ABSOLUTE AUTO 4.67 K/mm3 (1.96-9.15); NEUTROPHILS PERCENT AUTO 72 % (41-73); Platelet Count 241 K/mm3 (150-400); RDW Coefficient Variation 13.1 % (11.7-14.2); RDW Standard Deviation 42.8 fL (35.1-46.3); Red Blood Cell Count 3.61 M/mm3 (4.30-5.90); White Blood Cell Count 6.49 K/mm3 (4.00-11.30)
[2023-07-01 04:00] LABS: Bun/Creatinine Ratio 13.6 (12.0-20.0); Calcium, Blood 8.6 mg/dL (8.5-10.1); Creatinine, Blood 1.25 mg/dL (0.60-1.20); Potassium, Blood 4.3 mmol/L (3.5-5.5)
--- NOTE | 2023-07-01 05:46 | NUR ---
SHIFT SUMMARY: FEMORAL ACCESS SITES REMAINS UNCHANGED; DRESSING C/D/I AND AREA IS SOFT AND NON-TENDER. PT LAYED FLAT FOR ENTIRE SHIFT AND NO IS RAISING HEAD OF BED THIS MORNING. VSS THROUGHOUT THE NIGHT; NO C/O CHEST PAIN/PRESSURE THROUGHOUT THE NIGHT. PT USING CALL LIGHT APPROPRIATELY. BED LOWERED, CALL LIGHT IN REACH, WILL REPORT OFF TO ONCOMING RN.
--- NOTE | 2023-07-01 07:00 | NUR ---
ASSUMPTION OF CARE PT SITTING UP IN BED, ALERT AND ORIENTED WITH PLEASANT AFFECT. R GROIN SITE VISUALIZED WITH SYLVIA NAVA. DRESSING C/D/I. STRONG PEDAL PULSES. SURROUNDING TISSUE SOFT, NONTENDER. PT DENIES CHEST PAIN/PRESSURE. HR 50S. SBP 110S-130S. PT STS HE IS READY FOR BREAKFAST AND HOPING TO GO HOME TODAY. BED IN LOW POSITION,CALL LIGHT WITHIN REACH.
--- NOTE | 2023-07-01 10:04 | NUR ---
UPDATE DR MIRELES AND DR MENDENHALL ROUNDED. PLAN TO DISCHARGE PT. PT AND SPOUSE AGREE WITH PLAN TO DISCHARGE TODAY.
--- NOTE | 2023-07-01 10:55 | NUR ---
DISCHARGE PT AND SPOUSE PROVIDED DISCHARGE EDUCATION AND MEDICATIONS. PT VERBALIZES UNDERSTANDING OF R FEMORAL SITE CARE. NOTIFIED OF FOLLOW UP APPOINTMENT WITH PCP LISTED ON INSTRUCTIONS. CALLED CARDIOLOGY OFFICE TO SCHEDULE APPOINTMENT AND INFORMED IT WILL BE SENT TO THE FLOOR REFINISHER AND THE FLOOR REFINISHER WILL CALL PT TO ARRANGE APPOINTMENT. HR 50S-60S. BP STABLE. HE CONTINUES TO DENY CHEST PAIN/PRESSURE. PT DRESSED SELF INDEPENDENTLY AND PROVIDED WHEELCHAIR AND ASSISTANCE TO CAR BY RAYRAY CALIX. PT LEFT DEPARTMENT AT 1050.
== END 2023-07-01 10:50 | disposition home or self-care (01) | DRG 325 ==
LOC: ER 16:58 → PCU 16:59 → ICUE 06-30 16:44
PROVIDERS: Family Medicine; Nurse Practitioner Acute Care; ADMIT Internal Medicine
PROC: 3E02340 Introduction of Influenza Vaccine into Muscle, Percutaneous Approach (ICD-10-PCS; 2023-06-29)
PROC: 02703ZZ Dilation of Coronary Artery, One Artery, Percutaneous Approach (ICD-10-PCS; principal; 2023-06-30)
PROC: 02F03ZZ Fragmentation in Coronary Artery, One Artery, Percutaneous Approach (ICD-10-PCS; 2023-06-30)
PROC: 4A023N7 Measurement of Cardiac Sampling and Pressure, Left Heart, Percutaneous Approach (ICD-10-PCS; 2023-06-30)
PROC: B2111ZZ Fluoroscopy of Multiple Coronary Arteries using Low Osmolar Contrast (ICD-10-PCS; 2023-06-30)
PROC: B21F1ZZ Fluoroscopy of Other Bypass Graft using Low Osmolar Contrast (ICD-10-PCS; 2023-06-30)
PROC: B241ZZ3 Ultrasonography of Multiple Coronary Arteries, Intravascular (ICD-10-PCS; 2023-06-30)
DX: T82.855A Stenosis of coronary artery stent, initial encounter (principal); I21.4 Non-ST elevation (NSTEMI) myocardial infarction; I25.10 Atherosclerotic heart disease of native coronary artery without angina pectoris; K21.9 Gastro-esophageal reflux disease without esophagitis; E78.5 Hyperlipidemia, unspecified; I10 Essential (primary) hypertension; E11.9 Type 2 diabetes mellitus without complications; I08.3 Combined rheumatic disorders of mitral, aortic and tricuspid valves; N40.0 Benign prostatic hyperplasia without lower urinary tract symptoms; Z95.1 Presence of aortocoronary bypass graft; Z87.19 Personal history of other diseases of the digestive system; Z79.899 Other long term (current) drug therapy; Z79.82 Long term (current) use of aspirin; Z79.02 Long term (current) use of antithrombotics/antiplatelets; Z79.811 Long term (current) use of aromatase inhibitors; Z95.5 Presence of coronary angioplasty implant and graft; Z23 Encounter for immunization
CPT/HCPCS: 0715T; 36415; 71260; 76937; 80048; 83880; 84484; 85025; 85027; 85347; 85730; 92920; 92978; 93005; 93010; 93455; 96372; 96374-59; 99152; 99153; 99285-25; A9270; C1725; C1753; C1761; C1769; C1887; C1894; C8929; G0378; J1644; J2250; J3010; J7030; J7040; J7050; Q2036; Q9957; Q9967

== ENCOUNTER → 2023-06-28 | Outpatient (CLI) | payer OTHER ==
[~2023-06-28] MED LIST changes: +Isosorbide Mono30 MG PO; +LIPITOR80 MG PO; +METO25ER PO
[2023-06-28 16:08] LABS: BASOPHILS ABSOLUTE AUTO 0.03 K/mm3 (0.00-0.23); BASOPHILS PERCENT AUTO 0 % (0-2); EOSINOPHILS PERCENT AUTO 2 % (0-6); Hematocrit 31.9 % (37.0-53.0); Hemoglobin 10.6 g/dL (13.5-17.5); IMMATURE GRAN ABSOLUTE AUTO 0.04 K/mm3 (0.00-0.10); IMMATURE GRAN PERCENT AUTO 1 % (0-1); LYMPHOCYTES ABSOLUTE AUTO 1.15 K/mm3 (0.84-5.20); LYMPHOCYTES PERCENT AUTO 17 % (21-46); MONOCYTES ABSOLUTE AUTO 0.53 K/mm3 (0.16-1.47); MONOCYTES PERCENT AUTO 8 % (4-13); Mean Corpuscular HGB 29.5 pg (26.0-34.0); Mean Corpuscular HGB Conc 33.2 g/dL (31.5-36.5); Mean Corpuscular Volume 89 fL (80-100); Mean Platelet Volume 9.3 fL (9.1-12.4); NEUTROPHILS ABSOLUTE AUTO 4.84 K/mm3 (1.96-9.15); NEUTROPHILS PERCENT AUTO 72 % (41-73); Platelet Count 269 K/mm3 (150-400); RDW Coefficient Variation 13.5 % (11.7-14.2); RDW Standard Deviation 43.9 fL (35.1-46.3); Red Blood Cell Count 3.59 M/mm3 (4.30-5.90); White Blood Cell Count 6.69 K/mm3 (4.00-11.30)
[2023-06-28 16:21] LABS: Albumin, Blood 3.8 g/dL (3.4-5.0); Albumin/Globulin Ratio 1.1 (0.8-1.8); Bilirubin, Total 0.2 mg/dL (0.1-1.0); Bun/Creatinine Ratio 14.3 (12.0-20.0); Calcium, Blood 9.1 mg/dL (8.5-10.1); Creatinine, Blood 1.54 mg/dL (0.60-1.20); Globulin, Blood 3.4 g/dL (2.2-4.0); Potassium, Blood 4.7 mmol/L (3.5-5.5); Total Protein, Blood 7.2 g/dL (6.4-8.2)
== END | disposition home or self-care (01) ==
LOC: LAB 16:05 → LAB SHORT 16:05
PROVIDERS: Physician Assistant
DX: R07.9 Chest pain, unspecified (principal)
CPT/HCPCS: 80053; 84484; 85025

== ENCOUNTER → 2023-08-09 | Outpatient (CLI) | payer OTHER | LOC: PLD 11:40 → LAB SHORT 11:40 | DX: C44.41 Basal cell carcinoma of skin of scalp and neck (principal) | CPT/HCPCS: 88305 ==